=== PATIENT | female | born 1990 | race Caucasian/White ===

== ENCOUNTER → 2016-09-04 | Outpatient (CLI) | payer OTHER ==
[2016-09-04 20:19] LABS: BASO % 0.2 % (0.0-1.0); EOS % 0.6 % (0.0-3.0); LARGE UNSTAINED CELL # 0.2 K/mm3 (0.0-0.4); LARGE UNSTAINED CELL % 1.9 % (0.0-4.0); LYMPH # 2.3 K/mm3 (1.5-6.5); LYMPH % 28.4 % (24.0-44.0); MEAN CORPUSCULAR HEMOGLOBIN 30.4 pg (27.0-33.0); MEAN CORPUSCULAR HGB CONC 34.6 g/dl (32.0-36.5); MEAN CORPUSCULAR VOLUME 87.8 fl (80.0-96.0); MONO # 0.5 K/mm3 (0.0-0.8); NEUTROPHILS % 62.9 % (36.0-66.0); PLATELET COUNT, AUTOMATED 250 k/mm3 (150-450); RED CELL DISTRIBUTION WIDTH 12.3 % (11.5-14.5)
[2016-09-06 09:31] LABS: HBsAg Prenatal NEGATIVE (NEGATIVE)
== END ==
LOC: M LRY 15:45
PROVIDERS: ATTEND Advanced Practice Midwife
DX: Z34.81 Encounter for supervision of other normal pregnancy, first trimester (principal); Z3A.00 Weeks of gestation of pregnancy not specified

== ENCOUNTER → 2016-11-20 | Outpatient (CLI) | payer OTHER ==
--- NOTE | 2016-11-21 02:07 | REP ---
Clinical: Anatomical evaluation. Comparison: None . Findings: Examination demonstrates a single live intrauterine in variable presentation. motion is identified by technologist. Placenta is noted posteriorly and grade zero without evidence for placenta previa or abruption. Amniotic fluid volume is normal. Cervix measures 4.5 cm in length and appears closed. No evidence for nuchal cord. Gestational age by LMP 18 weeks 0 days with NIURKA 09/23/2017 . Gestational age by current measurements 17 weeks 1 day with NIURKA 04/29/2017 . FHR equals 153 beats per minute. BPD 3.5 cm 16 weeks 6 days HC 13.3 cm 16 weeks 6 days AC 11.1 cm 17 weeks 0 days FL 2.5 cm 17 weeks 4 days HL 1.7 cm 17 weeks 3 days HC/AC ratio 1.20 Estimated weight 186 grams ( 19th percentile). Anatomical assessment demonstrates normal structures including cranium, cavum, cerebellum/posterior fossa, facial features, lungs, four-chamber heart/ventricular outflow tracts, diaphragm, stomach, cord insertion/three-vessel cord, kidneys/bladder, spine, and extremities. Subtle heterogeneity to the bilateral cord plexus is suggested without obvious, discrete cyst. Impression: 1. Single live intrauterine in variable presentation demonstrating appropriate interval growth. 2. Anatomical assessment is essentially normal although subtle heterogeneity to the cord plexus is suggested without discrete cystic changes. Consider follow-up examination at 3-4 weeks.
== END ==
LOC: M WHC 10:50
PROVIDERS: ATTEND Advanced Practice Midwife
DX: Z34.82 Encounter for supervision of other normal pregnancy, second trimester (principal)

== ENCOUNTER → 2016-12-22 | Outpatient (CLI) | payer OTHER ==
--- NOTE | 2016-12-22 17:47 | REP ---
Obstetric sonography: History: Supervision of followup anatomy. Findings: Scanning through the gravid uterus demonstrates a viable single intrauterine gestation in a transverse lie with head to the maternal right. motion is observed and heart rate is recorded at 163 beats per minute. A posterior grade zero placenta is seen without evidence of previa. Amniotic fluid is subjectively normal. Closed cervical length visualized transabdominally is 4.5 cm. No extrauterine abnormalities observed. There has been appropriate interval growth. Multiple bilateral choroid plexus cysts are seen, the largest measuring 6 mm on the right and the largest on the left measuring 3.1 mm. No other abnormality is seen. Left-sided stomach, normal kidneys and bladder are seen. Biometry chart: BPD 5.2 cm = 21 weeks 5 days. Head circumference 19.4 cm = 21 week 5 days Abdominal circumference 17.5 cm = 22 weeks 3 days Femur length 3.7 cm = 21 weeks 5 days HC/AC ratio normal 1.11, cephalic index normal 0.73 estimated weight 472 grams 1 pound 0 ounces 29th percentile for 22 weeks 4 days. Impression: Viable single intrauterine gestation at 21 weeks 4 days by today's composite sonographic criteria. Expected gestational age estimate based on prior sonography is 22 weeks 4 days. NIURKA by prior sonography April 23, 2017. Multiple choroid plexus cysts are noted bilaterally. No other abnormality is seen.
== END ==
LOC: M WHC 08:02
PROVIDERS: ATTEND Advanced Practice Midwife
DX: Z36.2 Encounter for other antenatal screening follow-up (principal)

== ENCOUNTER → 2017-01-27 | Outpatient (CLI) | payer OTHER ==
[2017-01-27 14:37] LABS: BASO % 0.2 % (0.0-1.0); EOS # 0.1 10^3/uL (0.0-0.50); EOS % 0.5 % (0.0-3.0); IMMATURE GRANULOCYTE % 1.2 % (0-0); LYMPH # 1.7 10^3/uL (1.5-6.5); LYMPH % 16.5 % (24.0-44.0); MEAN CORPUSCULAR HEMOGLOBIN 30.8 pg (27.0-33.0); MEAN CORPUSCULAR HGB CONC 33.7 g/dl (32.0-36.5); MEAN CORPUSCULAR VOLUME 91.3 fl (80.0-96.0); MONO # 0.9 10^3/uL (0.0-0.8); MONO % 8.2 % (0.0-5.0); NEUTROPHILS # 7.6 10^3/uL (1.8-7.7); NEUTROPHILS % 73.4 % (36.0-66.0); PLATELET COUNT, AUTOMATED 212 10^3/uL (150-450); RED CELL DISTRIBUTION WIDTH 12.9 % (11.5-14.5); WHITE BLOOD COUNT 10.3 10^3/uL (4.0-10.0)
== END ==
LOC: M WUC 10:22
PROVIDERS: ATTEND Advanced Practice Midwife
DX: Z34.83 Encounter for supervision of other normal pregnancy, third trimester (principal); Z3A.00 Weeks of gestation of pregnancy not specified

== ENCOUNTER → 2017-01-30 | Outpatient (REF) | payer OTHER | LOC: M LAB REF 14:03 | PROVIDERS: ATTEND Advanced Practice Midwife | DX: R07.0 Pain in throat (principal) ==

== ENCOUNTER → 2017-03-21 | Outpatient (REF) | payer OTHER | LOC: M SFHCLERA 10:22 | DX: J02.9 Acute pharyngitis, unspecified (principal) ==

== ENCOUNTER → 2017-03-28 | Outpatient (REF) | payer OTHER | LOC: M LAB REF 13:13 | DX: Z34.83 Encounter for supervision of other normal pregnancy, third trimester (principal) | CPT/HCPCS: 87186 ==

== ENCOUNTER 2017-04-25 03:30 | Inpatient (IN) | payer OTHER ==
[2017-04-25 04:59] LABS: HEMATOCRIT 33.2 % (36.0-47.0); HEMOGLOBIN 11.7 g/dl (12.0-16.0); MEAN CORPUSCULAR HEMOGLOBIN 30.3 pg (27.0-33.0); MEAN CORPUSCULAR HGB CONC 35.2 g/dl (32.0-36.5); PLATELET COUNT, AUTOMATED 189 10^3/uL (150-450); RED BLOOD COUNT 3.86 10^6/uL (4.00-5.40); RED CELL DISTRIBUTION WIDTH 13.2 % (11.5-14.5); WHITE BLOOD COUNT 18.1 10^3/uL (4.0-10.0)
[2017-04-25] MEDS: ACETAMINOPHEN 500 MG TAB PO (05:08)
[2017-04-25] MEDS: LACTATED RINGER'S 1000 ML IV (05:08)
[2017-04-25] MEDS: ACETAMINOPHEN 325 MG/10.15 ML UDC PO (05:30)
[2017-04-25] MEDS: LR 1,000 ML IV ×3 (10:44→20:23)
[2017-04-25] MEDS: OXYTOCIN DRIP 30 UNITS in APPROPRIATE DILUENT 1 EA IV (11:36)
[2017-04-25] MEDS: ONDANSETRON 4MG/2ML VIAL (J2405) IV ×3 (13:07→22:06)
[2017-04-25] MEDS: CEFAZOLIN SOD 1 GM in APPROPRIATE DILUENT 1 EA IV ×2 (13:16→21:09)
[2017-04-25] MEDS ORDERED: FENTANYL 2MCG/ML ROPIVACAINE 0.2% IN 0.9% NACL 200ML IVBAG As Ordered (19:56)
[2017-04-25] MEDS ORDERED: EPIDURAL COMMENT XX (20:30)
[2017-04-25] MEDS ORDERED: NALOXONE INJ 0.4 MG/1 ML VIAL (J2310) IV (20:30)
[2017-04-25] MEDS ORDERED: EPIDURAL/PCA KEYS XX (20:30)
[2017-04-25] MEDS ORDERED: LACTATED RINGER'S 1000 ML IV (20:30)
[2017-04-25] MEDS ORDERED: REFRIGERATOR IV KEYS XX (20:30)
[2017-04-25] MEDS ORDERED: diphenhydrAMINE INJ 50MG/ML VIAL (J1200) IV (20:30)
[2017-04-25] MEDS: FENTANYL/ROPIVACAINE/NACL BAG 200 ML EPIDURAL (20:30)
[2017-04-25] MEDS ORDERED: ONDANSETRON 4MG/2ML VIAL (J2405) IV (20:30)
[2017-04-25] MEDS: ePHEDrine SULFATE 25 MG/5 ML(5MG/ML) SYRINGE IV (21:48)
[2017-04-26] MEDS: LR 1,000 ML IV (04:23)
[2017-04-26] MEDS: CEFAZOLIN SOD 1 GM in APPROPRIATE DILUENT 1 EA IV (05:00)
[2017-04-26 06:53] LABS: CORD GAS O2 SAT A < 15.0 %; CORD GAS PCO2 A 76.8 mmHg; CORD GAS PH A 7.095 UNITS; CORD GAS PO2 A 11.2 mmHg; CORD GAS TCO2 A 25.4 MEQ/L
[2017-04-26 06:57] LABS: CORD GAS ABE V -10.2; CORD GAS HCO3 V 18.2 MEQ/L; CORD GAS O2 SAT V 39.9 %; CORD GAS PCO2 V 48.6 mmHg; CORD GAS PH V 7.191 UNITS; CORD GAS PO2 V 20.1 mmHg; CORD GAS SBC V 15.3 MEQ/L; CORD GAS TCO2 V 19.7 MEQ/L
[2017-04-26] MEDS: OXYTOCIN DRIP 30 UNITS in APPROPRIATE DILUENT 1 EA IV (07:30)
[2017-04-26] MEDS ORDERED: RHOGAM 300 MCG (1500 IU) INJ (J2790) IM (07:30)
[2017-04-26] MEDS ORDERED: DIBUCAINE 1% OINTMENT 30GM TOP (07:30)
[2017-04-26] MEDS ORDERED: ONDANSETRON 4MG/2ML VIAL (J2405) IV (07:30)
[2017-04-26] MEDS ORDERED: DOCUSATE SODIUM 100 MG CAP PO (07:30)
[2017-04-26] MEDS ORDERED: MEASLES,MUMPS,RUBELLA VACCINE INJ (MMR-II) (90707) SC (07:30)
[2017-04-26] MEDS ORDERED: METHYLERGONOVINE MALEATE 0.2 MG TAB PO (07:30)
[2017-04-26] MEDS ORDERED: ACETAMINOPHEN 500 MG TAB PO (07:30)
[2017-04-26] MEDS: PRENATAL VITAMINS CHEWABLE TABLET PO (09:00)
[2017-04-26] MEDS: IBUPROFEN 800 MG TAB PO ×2 (10:15→21:19)
[2017-04-26] MEDS ORDERED: PHYTONADIONE 1 MG/0.5 ML SYRINGE (J3430) IM (10:30)
[2017-04-26] MEDS ORDERED: ERYTHROMYCIN OPHTH OINT OU (10:30)
[2017-04-27] MEDS: PRENATAL VITAMINS CHEWABLE TABLET PO (09:43)
[2017-04-27] MEDS: IBUPROFEN 800 MG TAB PO (14:29)
[2017-04-28] MEDS: PRENATAL VITAMINS CHEWABLE TABLET PO (08:27)
== END 2017-04-28 13:30 | disposition home or self-care (01) | DRG 775 ==
LOC: M LDO 03:30 → M OBS 04-26 09:31 → M LDI 04:20
PROVIDERS: Advanced Practice Midwife
PROC: 10D07Z3 Extraction of Products of Conception, Low Forceps, Via Natural or Artificial Opening (ICD-10-PCS; principal; 2017-04-26)
PROC: 0KQM0ZZ Repair Perineum Muscle, Open Approach (ICD-10-PCS; 2017-04-26)
DX: O48.0 Post-term pregnancy (principal); Z37.0 Single live birth; Z3A.40 40 weeks gestation of pregnancy; O99.820 Streptococcus B carrier state complicating pregnancy; O32.4XX0 Maternal care for high head at term, not applicable or unspecified; O76 Abnormality in fetal heart rate and rhythm complicating labor and delivery; O70.1 Second degree perineal laceration during delivery

== ENCOUNTER → 2018-01-10 | Outpatient (REF) | payer OTHER | LOC: M SFHCLERA 15:56 | DX: R50.9 Fever, unspecified (principal) ==

== ENCOUNTER → 2018-01-26 | Outpatient (REF) | payer OTHER ==
[~2018-01-26] MED LIST: IBUP80TA PO; PRENTAB9 PO; TYLE500T78 PO
== END ==
LOC: M SFHCLERA 10:25
PROVIDERS: ATTEND Nurse Practitioner Family
DX: J02.9 Acute pharyngitis, unspecified (principal)

== ENCOUNTER → 2019-06-06 | Outpatient (REF) | payer OTHER ==
[2019-06-06 18:10] LABS: HEMATOCRIT 39.3 % (36.0-47.0); HEMOGLOBIN 13.6 g/dl (12.0-15.5); MEAN CORPUSCULAR HEMOGLOBIN 29.2 pg (27.0-33.0); MEAN CORPUSCULAR HGB CONC 34.6 g/dl (32.0-36.5); MEAN CORPUSCULAR VOLUME 84.3 fl (80.0-96.0); PLATELET COUNT, AUTOMATED 254 10^3/uL (150-450); RED BLOOD COUNT 4.66 10^6/uL (4.00-5.40); WHITE BLOOD COUNT 9.7 10^3/uL (4.0-10.0)
[2019-06-06 20:50] LABS: CHLAMYDIA DNA AMPLIFICATION NEGATIVE (NEGATIVE); GC DNA AMPLIFICATION NEGATIVE (NEGATIVE)
[2019-06-06 23:33] LABS: RUBELLA IgG QUALITATIVE EQUIVOCAL (IMMUNE)
[2019-06-09 10:36] LABS: HEPATITIS B SURFACE ANTIGEN NEGATIVE (NEGATIVE); HEPATITIS C VIRUS ABY INDEX 0.1 INDEX (<0.8); HIV 1&2 SCREEN CENTAUR NEGATIVE (NEGATIVE)
== END ==
LOC: M PLALAB 14:04
PROVIDERS: ATTEND Advanced Practice Midwife
DX: Z36.89 Encounter for other specified antenatal screening (principal); Z3A.00 Weeks of gestation of pregnancy not specified

== ENCOUNTER → 2019-07-29 | Outpatient (CLI) | payer OTHER ==
--- NOTE | 2019-07-29 14:54 | REP ---
Clinical: Anatomical evaluation. Comparison: None . Findings: Examination demonstrates a single live intrauterine in transverse (head to maternal right) presentation. motion is identified by technologist. Placenta is noted anterior and grade I without evidence for placenta previa or abruption. Amniotic fluid volume is normal. Cervix measures 3.8 cm in length and appears closed. No evidence for nuchal cord. Gestational age by LMP 19 weeks 2 days with NIURKA 12/21/2019 . Gestational age by current measurements 18 weeks 3 days with NIURKA 12/27/2019 . FHR equals 155 beats per minute. BPD 4.3 cm 18 weeks 6 days HC 15.9 cm 18 weeks 5 days AC 12.9 cm 18 weeks 3 days FL 2.7 cm 18 weeks 2 days HL 2.8 cm 19 weeks 1 day HC/AC ratio 1.24 Estimated weight 240 grams ( 17th percentile). Anatomical assessment demonstrates normal structures including cranium, cavum, cerebellum/posterior fossa, facial features, lungs, four-chamber heart/ventricular outflow tracts, diaphragm, stomach, cord insertion/three-vessel cord, kidneys/bladder, spine, and extremities. 4 mm left choroid plexus cyst noted. Impression: Single live intrauterine in transverse lie demonstrating appropriate interval growth. Anatomical assessment is essentially complete and within normal limits. 4 mm left choroid plexus cyst noted which may warrant followup.
== END ==
LOC: M WHC 12:49
PROVIDERS: ATTEND Advanced Practice Midwife
DX: O32.2XX0 Maternal care for transverse and oblique lie, not applicable or unspecified (principal); Z36.89 Encounter for other specified antenatal screening; Z3A.19 19 weeks gestation of pregnancy

== ENCOUNTER → 2019-09-15 | Outpatient (REF) | payer OTHER ==
[2019-10-12 05:12] LABS: HEMATOCRIT 38.4 % (36.0-47.0); HEMOGLOBIN 12.7 g/dl (12.0-15.5); MEAN CORPUSCULAR HEMOGLOBIN 30.5 pg (27.0-33.0); MEAN CORPUSCULAR HGB CONC 33.1 g/dl (32.0-36.5); MEAN CORPUSCULAR VOLUME 92.1 fl (80.0-96.0); PLATELET COUNT, AUTOMATED 195 10^3/uL (150-450); RED BLOOD COUNT 4.17 10^6/uL (4.00-5.40); WHITE BLOOD COUNT 10.3 10^3/uL (4.0-10.0)
== END ==
LOC: M SFHCWAGY 09:12
PROVIDERS: ATTEND Nurse Practitioner Women's Health
DX: Z34.92 Encounter for supervision of normal pregnancy, unspecified, second trimester (principal); Z36.89 Encounter for other specified antenatal screening

== ENCOUNTER → 2019-11-25 | Outpatient (REF) | payer OTHER | LOC: M SFHCWAGY 10:16 | PROVIDERS: ATTEND Advanced Practice Midwife | DX: Z34.83 Encounter for supervision of other normal pregnancy, third trimester (principal); Z3A.00 Weeks of gestation of pregnancy not specified ==

== ENCOUNTER 2019-12-28 17:45 | Outpatient (CLI) | payer OTHER ==
[~2019-12-28] VITALS: Ht 157.5 cm; Wt 90.5 kg
[2019-12-28 18:08] VITALS: BP 117/56
[2019-12-28] MEDS ORDERED: TUMS500C PO (18:15)
--- NOTE | 2019-12-28 18:46 | IPNPDOC ---
Text Note Date of Service The patient was seen on 12/28/19. NOTE Triage Vandana presents for scheduled NST/JULIO for 41wk LTG declining IOL (scheduled IOL 12/30). She feels well with no complaints. Feels good movement. No vaginal bleeding, loss of fluid or regular/painful ctx. 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 Discussed return precautions Safe for discharge home Neelam Osei MD VS,Matt, I+O VS, Matt, I+O Vital Signs Date Time Temp Pulse Resp B/P (MAP) Pulse Ox O2 Delivery O2 Flow Rate FiO2 12/28/19 18:08 97.5 80 18 117/56 (76) Neelam Osei MD Dec 28, 2019 18:46
== END 2019-12-28 18:43 | disposition home or self-care (01) ==
LOC: M LDO 17:45
PROVIDERS: ATTEND Obstetrics & Gynecology
DX: O48.0 Post-term pregnancy (principal); Z3A.41 41 weeks gestation of pregnancy; Z88.0 Allergy status to penicillin
CPT/HCPCS: 59025; 76815; G0378; G0463

== ENCOUNTER 2019-12-31 07:27 | Inpatient (IN) | payer OTHER ==
[2019-12-31] VITALS (22 sets, daily range): BP systolic 81–155; BP diastolic 43–87
[~2019-12-31] VITALS: Ht 157.5 cm; Wt 89.9 kg
[~2019-12-31 07:27] MED LIST changes: +TUMS500C PO
[2019-12-31] MEDS ORDERED: OXYTOCIN DRIP 30 UNITS in IV 1 EA IV SCH (08:15)
[2019-12-31] MEDS: LR 1,000 ML IV SCH ×4 (08:44→17:36)
[2019-12-31 08:50] LABS: HEMATOCRIT 34.9 % (36.0-47.0); HEMOGLOBIN 11.8 g/dl (12.0-15.5); MEAN CORPUSCULAR HEMOGLOBIN 30.4 pg (27.0-33.0); MEAN CORPUSCULAR HGB CONC 33.8 g/dl (32.0-36.5); MEAN CORPUSCULAR VOLUME 89.9 fl (80.0-96.0); PLATELET COUNT, AUTOMATED 146 10^3/uL (150-450); RED BLOOD COUNT 3.88 10^6/uL (4.00-5.40)
[2019-12-31] MEDS ORDERED: FENTANYL 2MCG/ML ROPIVACAINE 0.2% IN 0.9% NACL 100ML IVBAG As Ordered ONE (13:53)
[2019-12-31] MEDS: FENTANYL/ROPIVACAINE/NACL BAG 100 ML EPIDURAL SCH ×2 (15:16→23:14)
[2019-12-31] MEDS ORDERED: diphenhydrAMINE 50MG/ML VIAL (J1200) IV PRN (16:00)
[2019-12-31] MEDS ORDERED: EPIDURAL COMMENT XX SCH (16:00)
[2019-12-31] MEDS ORDERED: ONDANSETRON 4MG/2ML VIAL IV PRN (16:00)
[2019-12-31] MEDS ORDERED: EPIDURAL/PCA KEYS XX PRN (16:00)
[2019-12-31] MEDS ORDERED: REFRIGERATOR IV KEYS XX PRN (16:00)
[2019-12-31] MEDS ORDERED: LACTATED RINGER'S 1000 ML IV PRN (16:00)
[2019-12-31] MEDS ORDERED: NALOXONE INJ 0.4MG/1ML VIAL (J2310 PER 1MG) IV PRN (16:00)
[2019-12-31] MEDS: ePHEDrine SULFATE 25 MG/5 ML(5MG/ML) SYRINGE IV PRN ×2 (16:15→16:20)
[2020-01-01] VITALS (13 sets, daily range): BP systolic 121–180; BP diastolic 61–89
[2020-01-01] MEDS ORDERED: LABETALOL 100MG/20ML VIAL IV STA (00:55)
[2020-01-01] MEDS ORDERED: OXYTOCIN DRIP 30 UNITS in IV 1 EA IV SCH (01:16)
[2020-01-01] MEDS ORDERED: DOCUSATE SODIUM 100 MG CAP PO PRN (01:30)
[2020-01-01] MEDS ORDERED: IBUPROFEN 600MG TAB PO PRN (01:30)
[2020-01-01] MEDS ORDERED: MEASLES,MUMPS,RUBELLA VACCINE INJ (MMR-II) (90707) SC SCH (01:30)
[2020-01-01] MEDS ORDERED: DIBUCAINE 1% OINTMENT 30GM TOP PRN (01:30)
[2020-01-01] MEDS ORDERED: RHOGAM 300 MCG (1500 IU) INJ (J2790) IM SCH (01:30)
[2020-01-01] MEDS ORDERED: METHYLERGONOVINE MALEATE 0.2 MG TAB PO PRN (01:30)
[2020-01-01] MEDS ORDERED: ACETAMINOPHEN TAB 650MG DOSE (2X325MG) PO PRN (01:30)
[2020-01-01] MEDS: ACETAMINOPHEN 500 MG TAB PO PRN ×2 (02:31→12:05)
[2020-01-01] MEDS: PRENATAL VITAMINS CHEWABLE TABLET PO SCH (08:28)
[2020-01-01] MEDS: IBUPROFEN 800 MG TAB PO PRN ×2 (08:29→18:05)
[2020-01-02] MEDS: ACETAMINOPHEN 500 MG TAB PO PRN ×2 (05:00→12:01)
[2020-01-02 06:00] VITALS: BP 102/68
--- NOTE | 2020-01-02 07:19 | DS.PDOC ---
Discharge Summary General Date of Admission Dec 31, 2019 at 07:27 Date of Discharge Jan 02, 2020 Discharge Summary PROCEDURES PERFORMED DURING STAY: spontaneous vaginal delivery ADMITTING DIAGNOSES: 1. induction of labor for late term gestation DISCHARGE DIAGNOSES: 1. induction of labor for late term gestation, delivered COMPLICATIONS/CHIEF COMPLAINT: LABOR. HISTORY OF PRESENT ILLNESS/HOSPITAL COURSE: Vandana is a 29yo [id number] s/p uncomplicated at 41w3d, delivering at 2328 on 12/30, after undergoing IOL for LTG. She has had a benign course. At time of discharge, vitals are wnl, she is afebrile. There is no evidence of infection and she is hemodynamically stable. DISCHARGE MEDICATIONS: Please see below. ALLERGIES: Please see below. PHYSICAL EXAMINATION ON DISCHARGE: VITAL SIGNS: Please see below. General: patient resting comfortably Abdomen: soft, NTTP, fundus firm at u-2cm Extremities: no pain with palpation of calves LABORATORY DATA: Please see below. ACTIVITY: As tolerated, vaginal rest 6 weeks, no heavy lifting DIET: regular DISPOSITION: home DISCHARGE PLAN/INSTRUCTIONS: 1. Discharge home today 2. Routine visit in 6 weeks 3. Regular diet 4. Undecided on contraception, will readdress at 6wk PP visit 5. Discussed return precautions at length DISCHARGE CONDITION: Stable TIME SPENT ON DISCHARGE: Greater than 20 minutes. Neelam Osei MD Vital Signs/I&Os Vital Signs Date Time Temp Pulse Resp B/P (MAP) Pulse Ox O2 Delivery O2 Flow Rate FiO2 01/01/20 18:00 98.2 79 20 136/61 (86) 01/01/20 03:10 97 Room Air I&O- Last 24 Hours up to 6 AM 01/01/20 06:00 Intake Total 4221 ml Output Total 2025 ml Balance 2196 ml Discharge Medications Scheduled Calcium Carbonate (Tums) 200 Mg Tab.chew, 2 TAB PO PRN, (Reported) No.137/Iron/Folic Acd ( Vitamin Tablet) 1 Tab Tab, 1 TAB PO DAILY, (Reported) Allergies Coded Allergies: Penicillins (Verified Allergy, Intermediate, HIVES, 12/31/19) Neelam Osei MD Jan 01, 2020 19:39
--- NOTE | 2020-01-02 07:22 | IPNPDOC ---
Progress Note Date of Service: Jan 02, 2020 Day#: 2 Progress Note PPD 2 SUBJECT: Vandana is a 29yo [id number] s/p uncomplicated at 41w3d, delivering at 2328 on 12/30, after undergoing IOL for LTG, doing well day # 2. She has been ambulating, voiding spontaneously without issue and tolerating regular diet. Breast feeding without issue. Reports lochia is like a normal period. No f/c/n/v/CP/SOB. OBJECTIVE: VITAL SIGNS: Within normal limits, afebrile. Alert and oriented times three. Abdomen: Fundus firm at U-2. Soft, NTTP. Extremities: no pain with palpation of calves ASSESSMENT: Vandana is a 29yo [id number] s/p uncomplicated at 41w3d, delivering at 2328 on 12/30, after undergoing IOL for LTG, doing well day # 2. Vitals within normal limits, afebrile, hemodynamically stable with no evidence of infection. PLAN: 1. Discharge to home today. 2. Tylenol and Motrin for pain. Requests zoloft to prevent depression having hx of prior PPD. 3. Encourage breast feeding and ambulation. 4. Condoms for contraception 5. Routine PP visit in 6 weeks in clinic. 6. Discussed return precautions at length. Neelam Osei MD VS, I&O, 24H, Fishbone Vital Signs/I&O Vital Signs Date Time Temp Pulse Resp B/P (MAP) Pulse Ox O2 Delivery O2 Flow Rate FiO2 01/02/20 06:00 97.5 75 18 102/68 (79) 01/01/20 03:10 97 Room Air I&O- Last 24 Hours up to 6 AM 01/02/20 06:00 Intake Total 840 ml Balance 840 ml Neelam Osei MD Jan 02, 2020 07:20
[2020-01-02] MEDS ORDERED: DOCU100C16 PO (07:28)
[2020-01-02] MEDS ORDERED: IBUP80TA PO (07:28)
[2020-01-02] MEDS ORDERED: ZOLO25TA PO (07:28)
[2020-01-02] MEDS: PRENATAL VITAMINS CHEWABLE TABLET PO SCH (07:30)
[2020-01-02] MEDS: IBUPROFEN 800 MG TAB PO PRN (07:30)
== END 2020-01-02 12:10 | disposition home or self-care (01) | DRG 807 ==
LOC: M LDI 07:27 → M OBS 01-01 02:43
PROVIDERS: ADMIT Advanced Practice Midwife; ATTEND Advanced Practice Midwife
PROC: 3E033VJ Introduction of Other Hormone into Peripheral Vein, Percutaneous Approach (ICD-10-PCS; 2019-12-31)
PROC: 10E0XZZ Delivery of Products of Conception, External Approach (ICD-10-PCS; principal; 2020-01-01)
PROC: 0HQ9XZZ Repair Perineum Skin, External Approach (ICD-10-PCS; 2020-01-01)
DX: O48.0 Post-term pregnancy (principal); Z37.0 Single live birth; Z3A.41 41 weeks gestation of pregnancy; O70.0 First degree perineal laceration during delivery; Z88.0 Allergy status to penicillin; Z88.8 Allergy status to other drugs, medicaments and biological substances

== ENCOUNTER → 2020-01-04 | Day surgery (SDC) | payer OTHER ==
[~2020-01-04] VITALS: Ht 157.5 cm; Wt 83.4 kg
[~2020-01-04] MED LIST changes: +CALCIUM CARBONATE 500 MG CHEW U/D PO ONE; +DOCU100C16 PO; +NS 1,000 ML IV ONE; +ZOLO25TA PO
[2020-01-04 20:35] VITALS: BP 127/78
== END | disposition home or self-care (01) ==
LOC: M ED 17:14 → M SDC 17:15
PROVIDERS: ATTEND Specialist
DX: O89.4 Spinal and epidural anesthesia-induced headache during the puerperium (principal)
CPT/HCPCS: 62273; 96360; 99284; U0002

== ENCOUNTER → 2020-03-01 | Outpatient (REF) | payer OTHER ==
[~2020-03-01] MED LIST changes: -CALCIUM CARBONATE 500 MG CHEW U/D PO ONE; -NS 1,000 ML IV ONE
== END ==
LOC: M SFHCWAGY 12:33
PROVIDERS: ATTEND Obstetrics & Gynecology
DX: Z12.4 Encounter for screening for malignant neoplasm of cervix (principal)